=== PATIENT | female | born 1975 | race Caucasian/White ===

== ENCOUNTER 2017-01-27 22:46 | Emergency (ER) | payer OTHER ==
[~2017-01-27] VITALS: Ht 162.6 cm; Wt 100.0 kg
[2017-01-27] MEDS ORDERED: lantus (23:24)
[2017-01-27] MEDS ORDERED: GABA600T2 PO (23:24)
[2017-01-27] MEDS ORDERED: novolog (23:24)
[2017-01-27] MEDS ORDERED: OMEP40CA6 PO (23:24)
[2017-01-27 23:30] LABS: PH, VENOUS 7.397 pH (7.320-7.420)
[2017-01-27] MEDS ORDERED: SODIUM CHLORIDE 0.9% 1,000ML IVBOLUS ONE (23:30)
[2017-01-27] MEDS ORDERED: ONDANSETRON 2MG/ML, 2ML IVPush ONE (23:30)
[2017-01-27] MEDS ORDERED: SODIUM CHLORIDE FLUSH 10ML SYR IVF ONE (23:30)
[2017-01-27] MEDS ORDERED: INSULIN REGULAR 100 UNITS/ML, 3ML VIAL SQ-INSULIN ONE (23:30)
[2017-01-27] MEDS ORDERED: ONDANSETRON 2MG/ML, 2ML ONE (23:30)
[2017-01-27] MEDS ORDERED: INSULIN REGULAR 100 UNITS/ML, 3ML VIAL ONE (23:31)
[2017-01-27 23:42] LABS: BLOOD UREA NITROGEN 13 mg/dL (7-18)
[2017-01-28 00:02] LABS: ASPARTATE AMINO TRANSFERASE 16 U/L (15-37); IS PT STATUS REG ER OR PRE ER? YES
[2017-01-28] MEDS ORDERED: SODIUM CHLORIDE 0.9% 1,000ML IV ONE (01:00)
[2017-01-28] MEDS ORDERED: INSULIN REGULAR 100 UNITS/ML, 3ML VIAL SQ-INSULIN ONE (01:00)
[2017-01-28] MEDS ORDERED: INSULIN REGULAR 100 UNITS/ML, 3ML VIAL ONE (01:05)
[2017-01-28] MEDS ORDERED: HYDROcodone/APAP 5/325 TABLET PO ONE (02:00)
[2017-01-28] MEDS ORDERED: HYDROcodone/APAP 5/325 TABLET ONE (02:20)
[2017-01-28 03:01] VITALS: BP 128/68
== END 2017-01-28 03:02 | disposition home or self-care (01) ==
LOC: ED 01-28 02:25
DX: E11.65 Type 2 diabetes mellitus with hyperglycemia (principal); R53.1 Weakness; E66.01 Morbid (severe) obesity due to excess calories; Z72.89 Other problems related to lifestyle; Z68.37 Body mass index [BMI] 37.0-37.9, adult; Z88.8 Allergy status to other drugs, medicaments and biological substances
CPT/HCPCS: 36415; 80053; 81003; 82010; 82803; 82962; 83735; 84484; 84703; 85025; 93005; 96361; 96372; 96374; 99285; J2405; J7030